=== PATIENT | male | born 1960 | race Caucasian/White ===

== ENCOUNTER 2017-10-05 05:29 | Day surgery (SDC) | payer BC ==
[~2017-10-05] VITALS: Ht 172.7 cm; Wt 80.9 kg
[2017-10-05 07:07] VITALS: Ht 172.7 cm; Wt 80.9 kg
[2017-10-05] MEDS ORDERED: CHOLESTEROL MED (07:13)
[2017-10-05] MEDS ORDERED: BLOOD PRESSURE MED (07:13)
[2017-10-05 07:40] VITALS: BP 161/82; PULSE 51; RESP 18
--- NOTE | 2017-10-05 08:14 | OPPN ---
Date/Time of Note Date/Time of Note DATE: 10/05/17 TIME: 08:13 Operative Report Preoperative Diagnosis Screening colonoscopy Postoperative Diagnosis Poor prep preventing complete colonoscopy Operation/Procedure Performed Flexible sigmoidoscopy Surgeon see signature line assistant fitness manager None Anesthesia: moderate sedation Estimated blood loss: none Transfusion Required none Specimen None Grafts/Implants none Complications none TOAN OROPEZA MD Oct 05, 2017 08:14
[2017-10-05] MEDS ORDERED: FENTAnyl 50 MCG/ML VIAL ONE (08:20)
[2017-10-05] MEDS ORDERED: MIDAZOLAM 1 MG/ML 2 ML INJ ONE (08:20)
[2017-10-05 08:39] VITALS: BP 136/68; RESP 14
--- NOTE | 2017-10-05 09:04 | GILP ---
DATE OF PROCEDURE: NAME OF PROCEDURE: Colonoscopy. SURGEON: Toan Ortiz MD PREOPERATIVE DIAGNOSIS: Screening colonoscopy. POSTOPERATIVE DIAGNOSES: Poor prep with solid stool preventing complete colonoscopy. INDICATION FOR THE PROCEDURE: Mr. Fab Robles is a 57-year-old male patient who was scheduled f or screening colonoscopy. The procedure and possible complications are well explained to the patient. The patient understood and consented to the procedure. DESCRIPTION OF PROCEDURE: Under the influence of fentanyl and Versed, the colonoscope was carefully introduced in the rectum and it was advanced to the sigmoid colon. FINDINGS: Patient had poor prep with solid stool preventing complete colonoscopy. He tolerated the procedure very well and there was no complication from the procedure. At the end o f the procedure, he was awake with stable vital signs and he was discharged home to the care of his family. IMPRESSION: Poor prep with solid stool preventing complete colonoscopy. PLAN: The patient will need repeat colonoscopy with better preparation. Dictated By: TOAN RANKIN/NTS Conf#: [id number] DID#: [id number]
== END 2017-10-05 21:35 | disposition home or self-care (01) ==
LOC: GIL 05:29
PROVIDERS: ATTEND Internal Medicine Gastroenterology
DX: Z12.11 Encounter for screening for malignant neoplasm of colon (principal)
CPT/HCPCS: 45378; J2250; J3010